=== PATIENT | male | born 1965 | race Hispanic/Latino ===

== ENCOUNTER 2021-07-29 16:41 | Emergency (ER) | payer OTHER ==
[2021-07-29] MEDS ORDERED: SODIUM CHLORIDE 0.9% 1000 ML 1,000 ML IV ONE (17:15)
[2021-07-29] MEDS ORDERED: levETIRAcetam 500 MG in DEXTROSE 5% IN WATER 100 ML IV ONE (18:00)
--- NOTE | 2021-07-29 18:07 | XRay Report ---
CHEST 1 VIEW 07/29/2021 4:59 PM INDICATION / CLINICAL INFORMATION: Dyspnea. COMPARISON: 07/29/2021. FINDINGS: SUPPORT DEVICES: None. HEART / MEDIASTINUM: No significant abnormality. LUNGS / PLEURA: No significant pulmonary or pleural abnormality. No pneumothorax. ADDITIONAL FINDINGS: No significant additional findings. IMPRESSION: No acute abnormality. Signer Name: Benitez Felipe MD Signed: 07/29/2021 6:02 PM Workstation Name: [id number]
[2021-07-29 18:47] LABS: Basophils % (Auto) 0.3 % (0.0-1.8); Eosinophils % (Auto) 0.6 % (0.0-4.3); Hematocrit 43.1 % (35.5-45.6); Hemoglobin 14.9 gm/dl (11.8-15.2); Lymphocytes # (Auto) 0.9 K/mm3 (1.2-5.4); Lymphocytes % (Auto) 11.1 % (13.4-35.0); Mean Corpuscular HGB Conc 35 % (32-34); Mean Corpuscular Volume 88 fl (84-94); Monocytes # (Auto) 0.6 K/mm3 (0.0-0.8); Monocytes % (Auto) 6.7 % (0.0-7.3); Platelet Count 189 K/mm3 (140-440); Red Blood Count 4.88 M/mm3 (3.65-5.03); Red Cell Distribution Width 13.9 % (13.2-15.2)
[2021-07-29 18:57] LABS: Alanine Aminotransferase 116 units/L (7-56); Albumin 4.2 g/dL (3.9-5); BUN/Creatinine Ratio 13; Blood Urea Nitrogen 12 mg/dL (9-20); Calcium 9.8 mg/dL (8.4-10.2); Hemolysis Index 35
--- NOTE | 2021-07-29 19:02 | Emergency Department Report ---
ED Seizure HPI - General Chief Complaint: Seizure Stated Complaint: SEIZURE Time Seen by Provider: 07/29/21 17:14 Source: EMS Mode of arrival: Stretcher Limitations: No Limitations - History of Present Illness MD Complaint: seizure -: Sudden, hour(s) Description of Episode: loss of consciousness, tonic-clonic movement, bladder incontinence Witnessed:: Yes Trauma: No Seizure History: known seizure disorder Place: work Associated Symptoms: denies other symptoms Treatments Prior to Arrival: none - Related Data Allergies Allergy/AdvReac Type Severity Reaction Status Date / Time No Known Allergies Allergy Unverified 07/29/21 16:41 ED Review of Systems ROS: Stated complaint: SEIZURE Other details as noted in HPI Constitutional: denies: chills, fever Eyes: denies: eye pain, eye discharge, vision change ENT: denies: ear pain, throat pain Respiratory: denies: cough, shortness of breath, wheezing Cardiovascular: denies: chest pain, palpitations Endocrine: no symptoms reported Gastrointestinal: denies: abdominal pain, nausea, diarrhea Genitourinary: denies: urgency, dysuria Musculoskeletal: denies: back pain, joint swelling, arthralgia Skin: denies: rash, lesions Neurological: denies: headache, weakness, paresthesias Psychiatric: denies: anxiety, depression Hematological/Lymphatic: denies: easy bleeding, easy bruising ED Past Medical Hx - Past Medical History Previous Medical History?: No Hx Hypertension: No Hx Seizures: Yes - Surgical History Past Surgical History?: Yes Hx Appendectomy: Yes Additional Surgical History: brain tumor - Social History Smoking Status: Current Some Day Smoker ED Physical Exam - General Limitations: No Limitations General appearance: alert, in no apparent distress - Head Head exam: Present: atraumatic, normocephalic - Eye Eye exam: Present: normal appearance - ENT ENT exam: Present: mucous membranes moist - Neck Neck exam: Present: normal inspection - Respiratory Respiratory exam: Present: normal lung sounds bilaterally. Absent: respiratory distress - Cardiovascular Cardiovascular Exam: Present: regular rate, normal rhythm. Absent: systolic murmur, diastolic murmur, rubs, gallop - GI/Abdominal GI/Abdominal exam: Present: soft, normal bowel sounds - Rectal Rectal exam: Present: deferred - Extremities Exam Extremities exam: Present: normal inspection - Back Exam Back exam: Present: normal inspection - Neurological Exam Neurological exam: Present: alert, oriented X3 - Psychiatric Psychiatric exam: Present: normal affect, normal mood - Skin Skin exam: Present: warm, dry, intact, normal color. Absent: rash ED Course Vital Signs 07/29/21 07/29/21 07/29/21 16:44 17:27 17:31 Pulse Rate 125 H 117 H 116 H Respiratory 16 16 23 Rate Blood Pressure 127/80 Blood Pressure 158/90 [Left] O2 Sat by Pulse 96 97 98 Oximetry 07/29/21 07/29/21 07/29/21 17:45 18:00 18:01 Pulse Rate 115 H 107 H Respiratory 22 18 Rate Blood Pressure 127/80 127/80 Blood Pressure [Left] O2 Sat by Pulse 96 96 95 Oximetry - Reevaluation(s) Reevaluation #1: 07/29/21 19:01 vss no dsitress, back to [facility] no cpmpliants , fluids and keppra given will see his neurologist for follow up in 2 weeks august 13 ED Medical Decision Making - Lab Data Result diagrams: 07/29/21 18:06 07/29/21 18:06 Critical care attestation.: If time is entered above; I have spent that time in minutes in the direct care of this critically ill patient, excluding procedure time. ED Disposition Clinical Impression: Seizure Disposition: 01 HOME / SELF CARE / HOMELESS Is pt being admited?: No Does the pt Need Aspirin: No Condition: Stable Instructions: Epilepsy, [id number]
[2021-07-29 23:27] VITALS: BP 132/80
--- NOTE | 2021-07-30 10:20 | Electrocardiograph Report ---
[facility] Test Date: 2021-07-29 Test Time: 17:16:44 Pat Name: CHANO QUACH Department: Room: Gender: M [employer]: TASHA : 1965 Requested By: ELIZABETH TAFOYA Order Number: [id number] Reading MD: Esteban Hussein Measurements Intervals [place] Rate: 115 P: 53 WA: 153 QRS: 93 QRSD: 85 T: 49 QT: 319 QTc: 441 Interpretive Statements Sinus tachycardia No previous ECG available for comparison Electronically Signed On 07-30-2021 10:20:34 EST by Esteban Hussein
== END 2021-07-29 23:20 | disposition home or self-care (01) ==
LOC: ED 16:41
DX: G40.909 Epilepsy, unspecified, not intractable, without status epilepticus (principal); Z98.890 Other specified postprocedural states; F17.200 Nicotine dependence, unspecified, uncomplicated
CPT/HCPCS: 36415; 71045; 80053; 85025; 93005; 93010; 96365; 99284; J1953; J7030; J7060; Q0162